=== PATIENT | female | born 1980 | race African-American/Black ===

== ENCOUNTER 2024-11-13 23:48 | Emergency (ER) | payer BC ==
[~2024-11-13] VITALS: Ht 162.6 cm; Wt 112.0 kg
[2024-11-13 23:55] VITALS: TEMP 37; O2SAT 98
[2024-11-14 00:21] LABS: BASOPHILS % 0.7 % (0.0-2.0); EOSINOPHILS % 2.6 % (0.0-5.0); HEMATOCRIT. 37.4 % (36.0-48.0); HEMOGLOBIN. 12.6 g/dL (12.0-16.0); LYMPHOCYTES % 42.1 % (20.0-50.0); MEAN CORPUSCULAR HEMOGLOBIN 29.8 pg (28.0-32.0); MEAN CORPUSCULAR HGB CONC 33.8 g/dL (31.0-37.0); MEAN CORPUSCULAR VOLUME 88.2 fL (81.0-99.0); MEAN PLATELET VOLUME 7.3 fl (7.4-10.4); MONOCYTES % 9.1 % (2.0-8.0); NEUTROPHILS % 45.5 % (40.0-76.0); PLATELET 251 x1000/uL (130-400); RED BLOOD CELL COUNT 4.24 mill/uL (4.2-5.4); WHITE BLOOD COUNT 5.9 x1000/uL (4.5-11.0)
[2024-11-14 00:32] LABS: CHLORIDE 103 mEq/L (98-107); SODIUM 138 mEq/L (136-145)
[2024-11-14 00:33] LABS: CARBON DIOXIDE 27 mEq/L (21-32)
[2024-11-14 00:34] LABS: CALCIUM 9.6 mg/dL (8.7-10.4)
[2024-11-14 00:38] LABS: CREATININE 1.1 mg/dL (0.6-1.0); GLUCOSE 116 mg/dL (70-105); UREA NITROGEN BLOOD 10 mg/dL (9-23)
[2024-11-14 00:43] LABS: TROPONIN I HIGH SENSITIVITY < 4 ng/L (3.0-34)
[2024-11-14 03:44] LABS: ALANINE AMINOTRANSFERASE 19 IU/L (10-49); ALBUMIN 4.3 g/dL (3.2-4.8); ASPARTATE AMINOTRANSFERASE 18 IU/L (<34); BILIRUBIN DIRECT 0.1 mg/dL (<=3.0); BILIRUBIN TOTAL 0.4 mg/dL (0.1-1.0)
[2024-11-14 04:14] LABS: TROPONIN I HIGH SENSITIVITY < 4 ng/L (3.0-34)
[2024-11-14] MEDS: ASPIRIN 325MG EC TABLET PO ONE (04:14)
[2024-11-14] MEDS ORDERED: IOHEXOL-350 100 ML BOTTLE ONE (05:54)
[2024-11-14] MEDS ORDERED: MAG-55 MT (06:04)
[2024-11-14] MEDS ORDERED: FAMO-135 MT (06:04)
[2024-11-14] MEDS ORDERED: ALBU18HF2 IH (06:04)
[2024-11-14 06:24] VITALS: BP 153/98; PULSE 80; RESP 18; O2SAT 100
== END 2024-11-14 06:27 | disposition home or self-care (01) ==
LOC: ER 23:48
DX: R07.89 Other chest pain (principal); R00.2 Palpitations; R05.3 Chronic cough; E66.9 Obesity, unspecified; Z68.45 Body mass index [BMI] 70 or greater, adult
CPT/HCPCS: 81025; 36415 ×2; 71045; 93005 ×2; 99285; 80076; 80048; 83690; 85025; 85379; 84484; 71275; Q9967; Z7610